=== PATIENT | male | born 1960 | race Caucasian/White ===

== ENCOUNTER 2017-05-05 13:56 | Day surgery (SDC) | payer MEDICARE ==
[~2017-05-05 13:56] MED LIST: AMLO5TAB2 PO; BISA-67 PO; CALC667C9 PO; CARV25TA2 PO; FURO80TA83 PO; SEVE2.4P PO; WARF7.5T PO; [UNRECOGNIZED DRUG - CODE] PO; marijuana
[2017-05-05] MEDS ORDERED: Alteplase (Cathflo) 1 mg/mL 2 mL Inj IV ONE (14:30)
[2017-05-05 15:31] VITALS: BP 163/98; PULSE 95; RESP 16; O2SAT 98
--- NOTE | 2017-05-05 15:45 | NUR ---
Dialysis note: [facility] functioning [facility]. Cath limbs cleaned, dwell removed, flushed with NS, and Cathflo administered per MD orders. Limbs cleaned and secured with caps. Dressg CDI and presence of TPA noted on dressing. Pt stable and ambulatory.
[2017-05-05] MEDS ORDERED: OXYC15TA45 PO (16:05)
[2017-05-05] MEDS ORDERED: LOSA25TA21 PO (16:05)
[2017-05-05] MEDS ORDERED: ZYL100 PO (16:05)
== END 2017-05-05 23:59 | disposition home or self-care (01) ==
LOC: MOCO 13:56
PROVIDERS: ATTEND Internal Medicine Nephrology
DX: T82.49XA Other complication of vascular dialysis catheter, initial encounter (principal); I12.0 Hypertensive chronic kidney disease with stage 5 chronic kidney disease or end stage renal disease; E11.22 Type 2 diabetes mellitus with diabetic chronic kidney disease; N18.6 End stage renal disease; I48.2 Chronic atrial fibrillation; D63.1 Anemia in chronic kidney disease; B18.2 Chronic viral hepatitis C; F12.90 Cannabis use, unspecified, uncomplicated; Z99.2 Dependence on renal dialysis; Z87.891 Personal history of nicotine dependence
CPT/HCPCS: 96374; J2997